=== PATIENT | male | born 1960 | race Caucasian/White ===

== ENCOUNTER 2017-04-16 19:33 | Emergency (ER) | payer BC ==
[2017-04-16 21:32] LABS: CHLORIDE,CL 99 mmol/L (101-111); SODIUM,NA 134 mmol/L (135-145)
[2017-04-16 23:04] VITALS: BP 162/95
--- NOTE | 2017-04-16 23:06 | EDM.PDOC ---
ED HPI GENERAL MEDICAL PROBLEM - General Chief Complaint: Respiratory Problem Stated Complaint: UPPER RESP [phone] Time Seen by Provider: 04/16/17 23:02 Source of Information: Reports: Patient History Limitations: Reports: No Limitations - History of Present Illness INITIAL COMMENTS - FREE TEXT/NARRATIVE: cold for 6 weeks, was starting to improve and around grand kids a week ago then symptoms worse with cough, few body aches, congestion. Mother recently diagnosed with pneumonia. - Related Data Allergies Allergy/AdvReac Type Severity Reaction Status Date / Time diphenhydramine Allergy Difficulty Verified 04/16/17 20:33 [From Benadryl] Breathing Home Meds: Home Meds Hydrochlorothiazide [Hydrochlorothiazide] 05/06/13 [History] Metoprolol Succinate 25 mg PO 05/06/13 [History] Olmesartan Medoxomil [Benicar] 05/06/13 [History] metFORMIN [Glucophage] 05/06/13 [History] Past Medical History HEENT History: Reports: None Cardiovascular History: Reports: High Cholesterol, Hypertension Respiratory History: Reports: None Gastrointestinal History: Reports: None Genitourinary History: Reports: None Musculoskeletal History: Reports: None Neurological History: Reports: None Psychiatric History: Reports: None Endocrine/Metabolic History: Reports: Diabetes, Type II Hematologic History: Reports: None Immunologic History: Reports: None Oncologic (Cancer) History: Reports: None Dermatologic History: Reports: None Social & Family History - Tobacco Use Smoking Status *Q: Never Smoker Years of Tobacco use: 15 Second Hand Smoke Exposure: No - Alcohol Use Days Per Week of Alcohol Use: 1 Number of Drinks Per Day: 7 Total Drinks Per Week: 7 - Recreational Drug Use Recreational Drug Use: No ED ROS GENERAL - Review of Systems Review Of Systems: See Below Constitutional: Reports: Fever, Malaise HEENT: Reports: Sinus Problem. Denies: Throat Pain Respiratory: Reports: Cough. Denies: Wheezing Cardiovascular: Reports: No Symptoms GI/Abdominal: Reports: No Symptoms : Reports: No Symptoms Musculoskeletal: Reports: No Symptoms Skin: Reports: No Symptoms Neurological: Reports: No Symptoms ED EXAM, GENERAL - Physical Exam Exam: See Below Exam Limited By: No Limitations General Appearance: Alert, Mild Distress Eye Exam: Bilateral Eye: EOMI Ears: Normal External Exam, Other (TMfluid bilaterally) Ear Exam: Right Ear: TM Dull Nose: Normal Inspection, Nasal Drainage Throat/Mouth: Inflammation Head: Atraumatic, Normocephalic Neck: Normal Inspection, Full Range of Motion, Lymphadenopathy (L), Lymphadenopathy (R) Respiratory/Chest: No Respiratory Distress, Lungs Clear, Normal Breath Sounds Cardiovascular: Normal Peripheral Pulses, Regular Rate, Rhythm GI/Abdominal: Normal Bowel Sounds Extremities: Normal Inspection, Normal Range of Motion Neurological: Alert, Oriented, Normal Cognition Psychiatric: Normal Affect Skin Exam: Warm, Dry, Intact Course - Vital Signs Last Recorded V/S: Last Vital Signs Temp 98.6 F 04/16/17 20:34 Pulse 93 04/16/17 23:04 Resp 18 04/16/17 23:04 BP 162/95 H 04/16/17 23:04 Pulse Ox 94 L 04/16/17 23:04 - Orders/Labs/Meds Labs: Laboratory Tests 04/16/17 04/16/17 Range/Units 21:07 21:07 WBC 5.3 (5.0-10.0) 10^3/uL RBC 4.46 L (4.6-6.2) 10^6/uL Hgb 13.5 L (14.0-18.0) g/dL Hct 40.3 (40.0-54.0) % MCV 90.4 (80-100) fL MCH 30.3 (27.0-34.0) pg MCHC 33.5 (33.0-35.0) g/dL Plt Count 182 (150-450) 10^3/uL Neut % (Auto) 66.5 (42.2-75.2) % Lymph % (Auto) 19.0 L (20.5-50.1) % Bee % (Auto) 10.2 H (2-8) % Eos % (Auto) 4.1 H (1.0-3.0) % Baso % (Auto) 0.2 (0.0-1.0) % Sodium 134 L (135-145) mmol/L Potassium 3.9 (3.6-5.0) mmol/L Chloride 99 L (101-111) mmol/L Carbon Dioxide 25.0 (21.0-31.0) mmol/L Anion Gap 13.9 BUN 16 (7-18) mg/dL Creatinine 0.7 (0.6-1.3) mg/dL Est Cr Clr Drug Dosing 132.41 mL/min Estimated GFR (MDRD) > 60 BUN/Creatinine Ratio 22.85 Glucose 159 H (74-105) mg/dL Calcium 8.9 (8.4-10.2) mg/dl Total Bilirubin 0.6 (0.2-1.0) mg/dL AST 36 (10-42) IU/L ALT 40 (10-60) IU/L Alkaline Phosphatase 52 (42-121) IU/L B-Natriuretic Peptide 26 (0-100) pg/ml Total Protein 7.2 (6.7-8.2) g/dl Albumin 4.4 (3.2-5.5) g/dl Globulin 2.8 Albumin/Globulin Ratio 1.57 Meds: Medications Discontinued Medications Generic Name Dose Route Start Last Admin Trade Name Freq PRN Reason Stop Dose Admin Azithromycin 500 mg 04/16/17 23:07 04/16/17 23:09 Zithromax PO 04/16/17 23:08 500 mg ONETIME ONE Administration - Radiology Interpretation Free Text/Narrative:: CXR: No acute disease Departure - Departure Time of Disposition: 23:08 Disposition: Home, Self-Care 01 Condition: Good Clinical Impression: Bronchitis - Discharge Information Instructions: Upper Respiratory Infection, Adult, [id number] Referrals: Jaime Cullen MD [Primary Care Provider] - Forms: ED Department Discharge Additional Instructions: increase fluids muccinex or robitussin to loosen secretions tylenol or ibuprofen for fever/ discomfort zaithromycin 250mg one daily for 4 days follow up if symptoms worsen
[2017-04-16] MEDS ORDERED: Azithromycin 250 MG Tab PO ONE (23:07)
== END 2017-04-16 23:11 | disposition home or self-care (01) ==
LOC: DL.ED 19:33
DX: J40 Bronchitis, not specified as acute or chronic (principal); I10 Essential (primary) hypertension; E78.00 Pure hypercholesterolemia, unspecified; E11.9 Type 2 diabetes mellitus without complications; Z72.0 Tobacco use; Z79.84 Long term (current) use of oral hypoglycemic drugs; Z88.8 Allergy status to other drugs, medicaments and biological substances
CPT/HCPCS: 36415; 71046; 80053; 83880; 85025; 99284; A9270

== ENCOUNTER 2022-03-13 10:30 | Emergency (ER) | payer BC ==
[2022-03-13] MEDS ORDERED: Lidocaine 1% 10 ML MDV INFILT ONE (10:42)
[2022-03-13] MEDS ORDERED: Bacitracin Oint 1 GM U/D Packet TOP ONE (10:43)
[2022-03-13] MEDS ORDERED: Diphtheria,Pertussis(Acell),Tetanus Vaccine 0.5 ML Syringe IM ONE (10:43)
[2022-03-13 10:57] VITALS: PULSE 78
[2022-03-13 11:25] VITALS: BP 160/99
== END 2022-03-13 11:19 | disposition home or self-care (01) ==
LOC: DL.ED 10:30
DX: S61.210A Laceration without foreign body of right index finger without damage to nail, initial encounter (principal); I10 Essential (primary) hypertension; E11.9 Type 2 diabetes mellitus without complications; Z79.84 Long term (current) use of oral hypoglycemic drugs; Z88.8 Allergy status to other drugs, medicaments and biological substances; Z23 Encounter for immunization; W31.2XXA Contact with powered woodworking and forming machines, initial encounter
CPT/HCPCS: 12001; 90471; 90715; 99282-25

== ENCOUNTER 2024-03-04 23:25 | Emergency (ER) | payer BC ==
[2024-03-04] MEDS: Albuterol/Ipratropium 3.0-0.5 MG/3 ML Neb Soln NEB ONE (23:51)
[2024-03-05 00:27] LABS: BASOPHILS PERCENT AUTO 0.3 % (0.0-1.0); EOSINOPHILS PERCENT AUTO 2.1 % (1.0-3.0); HEMATOCRIT 42.2 % (40.0-54.0); HEMOGLOBIN 13.9 g/dL (14.0-18.0); LYMPHOCYTES PERCENT AUTO 13.6 % (20.5-50.1); MEAN CORPUSCULAR HEMOGLOBIN 31.2 pg (27.0-34.0); MEAN CORPUSCULAR HGB CONC 32.9 g/dL (33.0-35.0); MEAN CORPUSCULAR VOLUME 94.8 fL (80-100); MONOCYTES PERCENT AUTO 5.9 % (2-8); NEUTROPHILS PERCENT AUTO 78.1 % (42.2-75.2); PLATELET COUNT,PLT 218 10^3/uL (150-450); RED BLOOD CELL COUNT 4.45 10^6/uL (4.6-6.2); WHITE BLOOD CELL COUNT,WBC 11.4 10^3/uL (5.0-10.0)
[2024-03-05 00:45] VITALS: BP 124/104; PULSE 64
[2024-03-05 00:50] LABS: A/G RATIO 0.9; ALBUMIN 3.4 g/dL (3.4-5.0); ANION GAP 16.4 mEq/L (7-13); BILIRUBIN TOTAL 0.7 mg/dL (0.2-1.0); BUN/CREATININE RATIO 20.8 (No establ ref range); CALCIUM 8.8 mg/dL (8.5-10.1); CREATININE 1.01 mg/dL (0.70-1.30); EST CRCL DRUG DOSING (CG) 84.3 mL/min; POTASSIUM,K 4.4 mmol/L (3.5-5.1); PROTEIN TOTAL,TP 7.1 g/dL (6.4-8.2)
[2024-03-05] MEDS: Dexamethasone 4 MG/ML SDV IM ONE (02:08)
[2024-03-05] MEDS: cefTRIAXone 1 GM, Lidocaine 1% 2.1 ML IM ONE (02:09)
== END 2024-03-05 02:21 | disposition home or self-care (01) ==
LOC: DL.ED 23:25
DX: J18.9 Pneumonia, unspecified organism (principal); E86.9 Volume depletion, unspecified; I10 Essential (primary) hypertension; E11.9 Type 2 diabetes mellitus without complications; Z79.84 Long term (current) use of oral hypoglycemic drugs; Z79.899 Other long term (current) drug therapy; Z88.8 Allergy status to other drugs, medicaments and biological substances
CPT/HCPCS: 36415; 71046; 80053; 82947; 84484; 85025; 87428; 94640; 96372; 99284; J0696; J1100; J3490; J7620-GY